=== PATIENT | female | born 1970 | race African-American/Black ===

== ENCOUNTER 2023-04-23 18:32 | Emergency (ER) | payer SELFPAY ==
[~2023-04-23] VITALS: Ht 165.1 cm; Wt 54.0 kg
[2023-04-23 18:56] VITALS: TEMP 98.6; O2SAT 100
[2023-04-23] MEDS ORDERED: PREDNISONE 20MG TABLET PO ONE (22:30)
[2023-04-23] MEDS ORDERED: HYDROCODONE/ACETAMINOPHEN 5/325MG TABLET PO ONE (22:30)
[2023-04-23 23:06] VITALS: BP 142/94; PULSE 108; RESP 17
[2023-04-23 23:32] LABS: BASOPHILS % 0.9 % (0.0-2.0); EOSINOPHILS % 1.1 % (0.0-5.0); HEMATOCRIT. 39.5 % (36.0-48.0); HEMOGLOBIN. 13.4 g/dL (12.0-16.0); LYMPHOCYTES % 36.1 % (20.0-50.0); MEAN CORPUSCULAR HEMOGLOBIN 30.1 pg (28.0-32.0); MEAN CORPUSCULAR VOLUME 88.6 fL (81.0-99.0); MEAN PLATELET VOLUME 7.2 fl (7.4-10.4); MONOCYTES % 7.9 % (2.0-8.0); PLATELET 327 x1000/uL (130-400); RED BLOOD CELL COUNT 4.46 mill/uL (4.2-5.4); RED CELL DISTRIBUTION WIDTH 13.3 % (11.6-14.6); WHITE BLOOD COUNT 4.1 x1000/uL (4.5-11.0)
[2023-04-23 23:35] LABS: CALCIUM 9.3 mg/dL (8.5-10.1); CHLORIDE 108 mEq/L (98-107); INDEX HEMOLYSI 1 (1-3); INDEX ICTERIC 1 (1-4); INDEX LIPEMIC 1 (1-3); POTASSIUM 3.3 mEq/L (3.5-5.1); SODIUM 137 mEq/L (136-145)
[2023-04-23 23:41] LABS: ALANINE AMINOTRANSFERASE 16 IU/L (13-61); ALBUMIN 3.8 g/dL (3.4-5.0); ASPARTATE AMINOTRANSFERASE 13 IU/L (15-37); BILIRUBIN TOTAL 0.3 mg/dL (0.1-1.0); CARBON DIOXIDE 30 mEq/L (21-32); CREATININE 0.6 mg/dL (0.6-1.3); GLUCOSE 110 mg/dL (70-105); PROTEIN TOTAL 9.8 g/dL (6.0-8.3); UREA NITROGEN BLOOD 12 mg/dL (7-21)
[2023-04-23] MEDS ORDERED: POTASSIUM CHLORIDE 20MEQ TABLET SR PO NR (23:45)
[2023-04-24] MEDS ORDERED: P20 MT (01:06)
== END 2023-04-24 01:17 | disposition home or self-care (01) ==
LOC: ER 18:32
DX: R68.89 Other general symptoms and signs (principal); Z98.890 Other specified postprocedural states
CPT/HCPCS: 99284; 80053; 85025; 36415; 73060; 73090; 73130; 73610; J7512